=== PATIENT | male | born 2000 ===

== ENCOUNTER 2022-01-05 18:16 | Emergency (ER) | payer SELFPAY ==
[~2022-01-05] VITALS: Ht 185.4 cm; Wt 86.4 kg
[2022-01-05 18:43] VITALS: BP 137/80
== END 2022-01-05 20:25 | disposition left against medical advice (07) ==
LOC: EMS 18:16
DX: R10.9 Unspecified abdominal pain (principal); Z53.21 Procedure and treatment not carried out due to patient leaving prior to being seen by health care provider